=== PATIENT | female | born 1940 | race Caucasian/White ===

== ENCOUNTER 2016-06-13 15:12 | Observation (INO) | payer MEDICARE ==
[2016-06-13] MEDS ORDERED: ASPIRIN 325 MG TAB PO ONE (15:51)
[2016-06-13] MEDS ORDERED: SODIUM CHLORIDE 0.9% 3 ML FLUSH FLUSH PRN (15:51)
--- NOTE | 2016-06-13 16:10 | EDPRACDOC ---
- General Information Information Source: Patient Mode of Arrival: Car - History of Present Illness Onset: one day HPI: PT PRESENTS TO ED WITH LEFT SIDED CHEST PAIN THAT IS ACHY DULL NO RADIATION WORSE WITH MILD EXERTION AND HAS HAD 1-2 EPISODES OF NAUSEA. PT STATES SHE WAS SENT FROM PCP OFFICE DUE TO ABNORMAL EKG CHANGES. PT HAS LONG H/O HEART PROBLEMS AND HAD OPEN HEART SURG APPROX 12 YEARS AGO AND HER LAST HEART CATH WAS APPROX 6YRS AGO. PT STATES HER PAIN GETS SOME BETTER WHEN SHE SITS DOWN TO REST. Chest Pain Location: Reports: Left Chest Pain Radiation: Reports: None Symptoms Occur: Reports: Gradually (GETTING WORSE OVER THE LAST 1-2 WEEKS AND IS MORE CONSTANT SINCE YESTERDAY) Cardiac Risk Factors: Reports: Family History, Hyperlipidemia, Hypertension, Diabetes (BORDERLINE PER PT) Cardiac History of: Reports: NH, Cardiac Cath (LAST CATH APPROX 6 YEARS AGO), Stress Test, CABG, Stent PE Risk Factors: Reports: None Medications within 24 Hours: Reports: Aspirin (LAST NIGHT) Prehospital Care: Reports: None Pain Came On: Reports: Gradually (GETTING WORSE) Pain Status: Present Now Pain Description: Reports: Burning, Aching, Tightness Pain Severity: Mild Pain Worsens With: Reports: Exertion Pain Improves With: Reports: Rest Associated Signs and Symptoms: Reports: Nausea <Gael Mike - Last Filed: 06/13/16 16:14> <Kyler Merritt - Last Filed: 06/13/16 20:42> - General Information Chief Complaint: Generalized Weakness Stated Complaint: ABNORMAL EKG SENT BY DOCTOR'S OFFICE NO CP WEAK Time Seen by Provider: 06/13/16 15:51 Home Medications: Home Medications Amlodipine [Norvasc] 10 mg PO QHS 12/07/13 Clopidogrel Bisulfate [Plavix] 75 mg PO QHS 12/07/13 Fenofibrate Nanocrystallized [Fenofibrate] 145 mg PO QHS 12/07/13 Levothyroxine Sodium [Levo-T] 88 mcg PO DAILY 12/07/13 Loratadine [Allergy Relief] 10 mg PO HS PRN 12/07/13 Metoprolol Succinate (XL) [Toprol Xl] 100 mg PO QHS 12/07/13 Nitroglycerin [Nitrostat] 0.4 mg SL [id number] PRN 12/07/13 Albuterol Sulfate [Ventolin Hfa] 1 - 2 puff INH Q4H PRN 06/13/16 Aspirin/Calcium Carbonate/Mag [Aspirin Buffered 325 mg Tab] 325 mg PO QHS Atorvastatin Calcium 40 mg PO QHS 06/13/16 Clonazepam 1 mg PO QHS PRN 06/13/16 Guaifenesin [Humabid, Mucinex] 600 mg PO BID 06/13/16 Ipratropium/Albuterol Sulfate [Combivent Respimat Inhal [place]] 4 gm INH QID Isosorbide Dinitrate 30 mg PO TID 06/13/16 L.acidoph & Paracasei,B.lactis [Probiotic] 1 cap PO BID 06/13/16 Mometasone/Formoterol [Dulera 200 Mcg/5 Mcg Inhaler] 2 puff INH BID 06/13/16 Multivitamin [One Daily] 1 tab PO QHS 06/13/16 Oxybutynin Chloride 5 mg PO BID 06/13/16 Pantoprazole Sodium [Protonix] 40 mg PO BID 06/13/16 Polyethylene Glycol 3350 [Miralax] 17 gm PO DAILY PRN 06/13/16 Ranitidine [Zantac] 150 mg PO BID 06/13/16 Ranolazine [Ranexa] 500 mg PO BID 06/13/16 Triamterene/Hydrochlorothiazid [Triamterene-Hctz 37.5-25 mg Tb] 1 tab PO DAILY 06/13/16 Allergies/Adverse Reactions: Allergies Allergy/AdvReac Type Severity Reaction Status Date / Time No Known Allergies Allergy Verified 12/07/13 20:08 ED Past Medical History - History Reviewed Yes Nurses notes reviewed and agree except as marked Travel Outside of [place] in the Last 3 Months?: No - Patient Medical History Cardiac History: Reports: Hypertension, Cardiac Catheterization, CABG, Stress Test, Hypercholesterolemia Systemic History: Reports: Cancer (COLON) - Social Medical History Smoking Status: Former smoker ETOH: None Substance Abuse: None Lives With: Other Lives In: Home <Gael Mike - Last Filed: 06/13/16 16:14> EDM Review of Systems - Review of Systems ROS Negative Except as Marked: Yes All systems reviewed and were negative except as marked Constitutional: Fatigue, Weakness. negative: Chills, Fever, Loss of Appetite Eyes: No Symptoms Reported. negative: Redness, Blurred Vision, Double Vision, Discharge, Pain, Light Sensitive, Photophobia Ears: No Symptoms Reported. negative: Pain, Hearing Loss, Drainage, Ear Pulling Throat: No Symptoms Reported. negative: Pain, Swelling Nose: No Symptoms Reported. negative: Congestion, Bleeding, Discharge, Injection, Swelling, Deformity, Ecchymosis, Tender, Abrasion, Laceration Mouth: No Symptoms Reported. negative: Pain, Drooling Respiratory: No Symptoms Reported. negative: Cough, Brassy Cough, Barky Cough, Shortness of Breath, Wheezing, Hemoptysis Cardiovascular: Chest Pain. negative: Cyanosis, Edema, Orthopnea, Palpitations , PND, Syncope, Skin Mottling Gastrointestinal: Nausea. negative: Constipation, Diarrhea, Formula Intolerance , Melena, Pain, Vomiting Genitourinary: No Symptoms Reported. negative: Dysuria, Hematuria, Frequency, Discharge, Bleeding, Testicular Pain, Neurological: No Symptoms Reported. negative: Headache, Dizziness, Seizure, Numbness, Weakness, Speech Difficulty, Gait Difficulty Musculoskeletal: No Symptoms Reported. negative: Neck, Chestwall, Ribs, Back, Shoulder, Arm, Elbow, Forearm, Wrist, Hand, Pelvis, Hip, Femur, Knee, Leg, Ankle , Foot Integumentary: No Symptoms Reported. negative: Itching, Rash, Bruising, Wound Allergic/Immunologic: No Symptoms Reported. negative: Hives, Itching Hematologic: No Symptoms Reported. negative: Lymphadenopathy, Easy Bruising, Easy Bleeding Endocrine: No Symptoms Reported. negative: Weight Gain, Weight Loss Psychiatric: No Symptoms Reported. negative: Anxiety, Depression, Hallucinations, Insomnia, Suicidal <Gael Mike - Last Filed: 06/13/16 16:14> - Physical Exam Constitutional: No apparent distress, Alert (Awake) Oriented to: Time, Person, Place Last recorded Vital Signs: Last Vital Signs Temp 98.3 F 06/13/16 15:25 Pulse 72 06/13/16 15:25 Resp 20 06/13/16 15:25 BP 175/84 06/13/16 15:25 Pulse Ox 97 06/13/16 15:25 Oxygen Pulse Oxygen Saturation 97 O2 Device Room Air Oxygen Flow Rate Fraction of Inspired Oxygen ( FIO2) - HEENT Head: Normal ( normocephalic) Eye Exam: Normal (PERRL, EOMI, Sclera white) Oropharynx: Normal (Pharynx:Moist without exudate,Gums-no swelling) Tympanic Membrane: Normal ENT EAC: Normal TMJ: Normal Nose: No Symptoms Reported (septum midline) Neck: Normal (FROM, trachea at midline) - Respiratory/Cardiovascular Respiratory: Diminished Cardiovascular: Normal (RRR without murmur, gallop or rub) - GI Auscultation: Normal (NABS) Palpation: Normal (Soft,No rebound or guarding, non distended) Tenderness: Non tender Norton's Sign: Negative - Bladder: Normal - Musculoskeletal Back: Normal (Non-Tender) Extremities: Normal (Normal tone, Pulses 2+ No cyanosis or edema, FROM) - Integumentary Skin: Normal, Warm, Dry Lymphatics: Normal (no adenopathy) - Neurologic Memory Impaired: Normal Motor Function: Normal (Normal tone, Pulses 2+ No cyanosis or edema, FROM) Cranial Nerve: Normal (CN II-X11 intact sensation, strength 5/5) Cerebellar: Normal Mood Description: Normal Perception: Normal <Gael Mike - Last Filed: 06/13/16 16:14> - Physical Exam Last recorded Vital Signs: Last Vital Signs Temp 98.1 F 06/13/16 20:32 Pulse 66 06/13/16 20:32 Resp 20 06/13/16 20:32 BP 140/68 06/13/16 20:32 Pulse Ox 92 06/13/16 20:32 Oxygen Pulse Oxygen Saturation 92 O2 Device Room Air Oxygen Flow Rate Fraction of Inspired Oxygen ( FIO2) <Kyler Merritt - Last Filed: 06/13/16 20:42> ED Chest Pain Exam - Respiratory/Cardiovascular Respiratory: Diminished Cardiovascular/Chest: Normal Radial Pulse: Normal Femoral Pulse: Normal Pedal Pulse: Normal Carotid Arteries: Normal Chest Palpation: Normal <Gael Mike - Last Filed: 06/13/16 16:14> - Differential Diagnosis Angina, Esophageal reflux/spasm, Gastritis, Myocardial infarction, Pneumonia - Action Patient received Aspirin within last 24 hours?: Yes ASA given in the ED: Yes Patient received Beta Susy within last 24hrs: Yes - Results All Results Reviewed and Normal except as Highlighted below: No <Gael Mike - Last Filed: 06/13/16 16:14> - Results 06/13/16 16:15 06/13/16 16:15 WBC 8.2 xk/uL (3.8-10.8) 06/13/16 16:15 RBC 5.14 xM/uL (4.20-5.40) 06/13/16 16:15 Hgb 14.8 g/dL (12.0-16.0) 06/13/16 16:15 Hct 44.0 % (36-47) 06/13/16 16:15 MCV 86 fL (81-99) 06/13/16 16:15 MCH 28.9 pg (27-32) 06/13/16 16:15 MCHC 33.7 g/dl (33-36) 06/13/16 16:15 RDW 13.7 % (11.5-14.5) 06/13/16 16:15 Plt Count 268 xk/uL (130-400) 06/13/16 16:15 MPV 8.5 fL (7.4-10.4) 06/13/16 16:15 Neut % (Auto) 52.5 % (45-76) 06/13/16 16:15 Lymph % (Auto) 32.8 % (17-44) 06/13/16 16:15 [place] % (Auto) 9.4 % (3-10) 06/13/16 16:15 Eos % (Auto) 3.1 % (0-5) 06/13/16 16:15 Baso % (Auto) 2.2 % (0-2) H 06/13/16 16:15 Absolute Neuts (auto) 4.26 xk/uL (1.7-8.2) 06/13/16 16:15 Absolute Lymphs (auto) 2.62 xk/uL (0.65-4.75) 06/13/16 16:15 PT 10.2 SEC (9.2-11.2) 06/13/16 16:15 INR 1.0 06/13/16 16:15 APTT 21.9 SEC (22-35) L 06/13/16 16:15 Sodium 138 mEq/L (137-146) 06/13/16 16:15 Potassium 4.1 mEq/L (3.5-5.1) 06/13/16 16:15 Chloride 101 mEq/L (98-107) 06/13/16 16:15 Carbon Dioxide 27 mMOL/L (22-33) 06/13/16 16:15 Anion Gap 14 mEq/L (8-16) 06/13/16 16:15 BUN 30 MG/DL (7-17) H 06/13/16 16:15 Creatinine 1.00 MG/DL (0.52-1.04) 06/13/16 16:15 Estimated GFR (MDRD) 54 mL/min (>=60) L 06/13/16 16:15 Glucose 95 MG/DL (70-99) 06/13/16 16:15 Calculated Osmolality 272 MOs/Kg (270-290) 06/13/16 16:15 Calcium 9.3 MG/DL (8.4-10.2) 06/13/16 16:15 Total Bilirubin 0.6 MG/DL (0.2-1.3) 06/13/16 16:15 AST 31 IU/L (14-36) 06/13/16 16:15 ALT 38 IU/L (9-52) 06/13/16 16:15 Alkaline Phosphatase 59 IU/L (55-165) 06/13/16 16:15 Troponin I < 0.01 ng/mL (<.04) 06/13/16 18:50 Yoy-X-Kuztiierjen Pept 218 pg/mL (0-900) 06/13/16 16:15 Total Protein 7.7 G/DL (6.3-8.2) 06/13/16 16:15 Albumin 4.4 G/DL (3.5-5.0) 06/13/16 16:15 Urine Color Yellow 06/13/16 17:15 Urine Clarity Clear 06/13/16 17:15 Urine pH 6.0 (5.0-8.0) 06/13/16 17:15 Ur Specific [place] 1.010 (1.003-1.035) 06/13/16 17:15 Urine Protein Neg (NEG/TRACE) 06/13/16 17:15 Urine Glucose (UA) Neg (NEGATIVE) 06/13/16 17:15 Urine Ketones Neg (NEGATIVE) 06/13/16 17:15 Urine Occult Blood Neg (NEG/TRACE) 06/13/16 17:15 Urine Nitrite Neg (NEGATIVE) 06/13/16 17:15 Urine Bilirubin Neg (NEGATIVE) 06/13/16 17:15 Urine Urobilinogen 0.2 MG/DL (0-1) 06/13/16 17:15 Ur Leukocyte Esterase Neg (NEGATIVE) 06/13/16 17:15 Urine RBC 0-2 (0-5) 06/13/16 17:15 Urine WBC 0-2 (0-5) 06/13/16 17:15 Ur Epithelial Cells Occ 06/13/16 17:15 Urine Bacteria Few (NEG/FEW) 06/13/16 17:15 Lab Results 06/13/16 06/13/16 06/13/16 17:15 16:15 16:15 WBC 8.2 RBC 5.14 Hgb 14.8 Hct 44.0 MCV 86 MCH 28.9 MCHC 33.7 RDW 13.7 Plt Count 268 MPV 8.5 Neut % (Auto) 52.5 Lymph % (Auto) 32.8 [place] % (Auto) 9.4 Eos % (Auto) 3.1 Baso % (Auto) 2.2 H Absolute Neuts (auto) 4.26 Absolute Lymphs (auto) 2.62 PT 10.2 INR 1.0 APTT 21.9 L Sodium Potassium Chloride Carbon Dioxide Anion Gap BUN Creatinine Estimated GFR (MDRD) Glucose Calculated Osmolality Calcium Total Bilirubin AST ALT Alkaline Phosphatase Troponin I Kum-[id number]-Iymplpagpzm Pept Total Protein Albumin Urine Color Yellow Urine Clarity Clear Urine pH 6.0 Ur Specific [place] 1.010 Urine Protein Neg Urine Glucose (UA) Neg Urine Ketones Neg Urine Occult Blood Neg Urine Nitrite Neg Urine Bilirubin Neg Urine Urobilinogen 0.2 Ur Leukocyte Esterase Neg Urine RBC 0-2 Urine WBC 0-2 Ur Epithelial Cells Occ Urine Bacteria Few 06/13/16 16:15 WBC RBC Hgb Hct MCV MCH MCHC RDW Plt Count MPV Neut % (Auto) Lymph % (Auto) [place] % (Auto) Eos % (Auto) Baso % (Auto) Absolute Neuts (auto) Absolute Lymphs (auto) PT INR APTT Sodium 138 Potassium 4.1 Chloride 101 Carbon Dioxide 27 Anion Gap 14 BUN 30 H Creatinine 1.00 Estimated GFR (MDRD) 54 L Glucose 95 Calculated Osmolality 272 Calcium 9.3 Total Bilirubin 0.6 AST 31 ALT 38 Alkaline Phosphatase 59 Troponin I < 0.01 Gix-D-Jouefveckgw Pept 218 Total Protein 7.7 Albumin 4.4 Urine Color Urine Clarity Urine pH Ur Specific [place] Urine Protein Urine Glucose (UA) Urine Ketones Urine Occult Blood Urine Nitrite Urine Bilirubin Urine Urobilinogen Ur Leukocyte Esterase Urine RBC Urine WBC Ur Epithelial Cells Urine Bacteria Laboratory Results - last 24 hr 06/13/16 06/13/16 06/13/16 16:15 16:15 16:15 WBC 8.2 RBC 5.14 Hgb 14.8 Hct 44.0 MCV 86 MCH 28.9 MCHC 33.7 RDW 13.7 Plt Count 268 MPV 8.5 Neut % (Auto) 52.5 Lymph % (Auto) 32.8 [place] % (Auto) 9.4 Eos % (Auto) 3.1 Baso % (Auto) 2.2 H Absolute Neuts (auto) 4.26 Absolute Lymphs (auto) 2.62 PT 10.2 INR 1.0 APTT 21.9 L Sodium 138 Potassium 4.1 Chloride 101 Carbon Dioxide 27 Anion Gap 14 BUN 30 H Creatinine 1.00 Estimated GFR (MDRD) 54 L Glucose 95 Calculated Osmolality 272 Calcium 9.3 Total Bilirubin 0.6 AST 31 ALT 38 Alkaline Phosphatase 59 Troponin I < 0.01 [id number]-Pjoavizsknm Pept 218 Total Protein 7.7 Albumin 4.4 Urine Color Urine Clarity Urine pH Ur Specific [place] Urine Protein Urine Glucose (UA) Urine Ketones Urine Occult Blood Urine Nitrite Urine Bilirubin Urine Urobilinogen Ur Leukocyte Esterase Urine RBC Urine WBC Ur Epithelial Cells Urine Bacteria 06/13/16 17:15 WBC RBC Hgb Hct MCV MCH MCHC RDW Plt Count MPV Neut % (Auto) Lymph % (Auto) [place] % (Auto) Eos % (Auto) Baso % (Auto) Absolute Neuts (auto) Absolute Lymphs (auto) PT INR APTT Sodium Potassium Chloride Carbon Dioxide Anion Gap BUN Creatinine Estimated GFR (MDRD) Glucose Calculated Osmolality Calcium Total Bilirubin AST ALT Alkaline Phosphatase Troponin I [id number]-Zaxtqsirdhc Pept Total Protein Albumin Urine Color Yellow Urine Clarity Clear Urine pH 6.0 Ur Specific [place] 1.010 Urine Protein Neg Urine Glucose (UA) Neg Urine Ketones Neg Urine Occult Blood Neg Urine Nitrite Neg Urine Bilirubin Neg Urine Urobilinogen 0.2 Ur Leukocyte Esterase Neg Urine RBC 0-2 Urine WBC 0-2 Ur Epithelial Cells Occ Urine Bacteria Few Laboratory Results 06/13/16 16:15 06/13/16 16:15 <Kyler Merritt - Last Filed: 06/13/16 20:42> <Gael Mike Last Filed: 06/13/16 16:14> - Departure Yes I personally saw and evaluated the patient. Disposition: Admit IP To This Hospital Decision to Admit Time: 18:20 Decision to admit date: 06/13/16 Decision to admit: from ED <Kyler Merritt - Last Filed: 06/13/16 20:42> - Departure Condition: Stable Final Diagnosis: Chest pain
[2016-06-13] MEDS ORDERED: MORPHINE 4 MG/ML INJECTION IV ONE (16:14)
[2016-06-13] MEDS ORDERED: NS 1,000 ML IV ONE (16:14)
[2016-06-13] MEDS ORDERED: ONDANSETRON HCL 4 MG/2 ML VIAL IV ONE (16:14)
--- NOTE | 2016-06-13 16:20 | DIRPT ---
CLINICAL DATA: Chest pain and weakness EXAM: PORTABLE CHEST 1 VIEW COMPARISON: 08/31/2015 FINDINGS: Status post median sternotomy. Stable mild cardiac enlargement. Vascular pattern normal. Lungs clear. No pleural effusions. IMPRESSION: No active disease. Electronically Signed By: Richard Stanley M.D. On: 06/13/2016 16:17
[2016-06-13 16:22] LABS: AUTOMATED BASOPHIL 2.2 % (0-2); AUTOMATED EOSINOPHIL 3.1 % (0-5); AUTOMATED LYMPH 32.8 % (17-44); AUTOMATED MONOCYTE 9.4 % (3-10); AUTOMATED NEUTROPHIL 52.5 % (45-76); MPV 8.5 fL (7.4-10.4)
[2016-06-13 16:33] LABS: BLOOD UREA NITROGEN 30 MG/DL (7-17); CALCIUM 9.3 MG/DL (8.4-10.2); CALCULATED OSMOLALITY 272 MOs/Kg (270-290); CHLORIDE 101 mEq/L (98-107); GLUCOSE 95 MG/DL (70-99); SODIUM LEVEL 138 mEq/L (137-146); TOTAL PROTEIN 7.7 G/DL (6.3-8.2)
[2016-06-13 16:34] LABS: PARTIAL THROMB. TIME 21.9 SEC (22-35)
[2016-06-13] MEDS: NITROGLYCERINE 0.4 MG TAB SL PRN ×2 (16:47→17:03)
[2016-06-13 17:45] LABS: RBC/URINE 0-2 (0-5); WBC/URINE 0-2 (0-5)
[2016-06-13 17:48] LABS: LEUKOCYTES/URINE NEG (NEGATIVE); NITRITE/URINE NEG (NEGATIVE); URINE OCCULT BLOOD NEG (NEG/TRACE)
[2016-06-13] MEDS ORDERED: SODIUM CHLORIDE 0.9% 3 ML FLUSH FLUSH SCH (18:00)
--- NOTE | 2016-06-13 18:44 | HISTPHYS ---
- Chief Complaint chest pain - History of Present Illness PRIMARY CARE PROVIDER: Dr. Cox HPI: The patient is a 75 yo woman with coronary artery disease and history of CABG who presents with worsening chest pain. The patient describes 2 kinds of pain, one in the left chest and the other in the epigastric region that radiates to her substernal area. She has had chronic intermittent chest pain for years, but over the last 3 weeks she has had more chest pain than usual. The chest pain has become more frequent, and she has had to use more nitroglycerin more frequently to resolve the chest pain. Yesterday and today her chest pain was considerably worse than normal. She went to her primary care doctor's office today and was told that her EKG was abnormal and that she should come to the emergency room. Yesterday and into today, she had chest pain most of the day, which is unusual, and it was not resolving. She took 6 nitroglycerin tabs today , and although they helped, she still had pain. The upper epigastric pain, which she calls her indigestion, is a tightness and pressure that moves up into her substernal area and has been 10/10 pain at times. The left chest pain is 7-8 /10 and is a pressure/heaviness pain. Onset: Worsening chest pain over 3 weeks but much worse yesterday and today. Duration: intermittent. Location and radiation: Upper epigastric pain radiating to the substernal area. Left chest. Character: he upper epigastric pain, which she calls her indigestion, is a tightness and pressure that moves up into her substernal area and has been 10/ 10 pain at times. The left chest pain is 7-8/10 and is a pressure/heaviness pain. Alleviated by: Nothing. Exacerbated by: exertion. Associated Symptoms: Palpitations. No shortness of breath. Has minimal dry cough. No wheezing. No shortness of breath or diaphoresis. Nausea. Vomited x 1. Has had increased hiccups over the last 2 days. Chronic constipation. Sometimes feels sour taste in mouth when she is lying down. Had dizziness. No headache or focal weakness. Treatments: none at home except usual medications. - Medical History Cardiac History: Reports: Hypertension, Congestive Heart Failure (Diastolic. ECHO 2007: EF 65%. Diastolic dysfunction.), Cardiac Catheterization, CABG, Stress Test (10/01/07: anterior ischemia, EF 65%.), Hypercholesterolemia GI/ History: Reports: PMH GI Yes/No Other (Chron's disease) Systemic History: Reports: Cancer (COLON), Hypothyroidism Neurological History: Denies: Cerebrovascular Accident (but had a TIA) OTHER HISTORY: ECHOCARDIOGRAM 07/01/2005: EF 60%. Normal left ventricular function. Diastolic dysfunction with impaired relaxation is seen. Aortic valve sclerosis, mild aortic regurgitation. Mild left atrial enlargement. Trace to mild tricuspid regurgitation. Mild mitral regurgitation. Per reports: Carotid endarterectomy 2008. - Surgical History Reports: CABG (08/26/03: HSAH to LAD; SVG to marginal, SVG to OM2, non-revasc diag branch.), Cardiac Catheterization (and CABG 08/26/03), Hernia Surgery (Dr. Shen, 2009. Also colon resection for colon mass 12/07/2006.), Other (Per report : Carotid endarterectomy 2008.) - Medictions/Allergies Allergies No Known Allergies Allergy (Verified 12/07/13 20:08) Current Medication List: Reviewed Home Medications Amlodipine [Norvasc] 10 mg PO QHS 12/07/13 Clopidogrel Bisulfate [Plavix] 75 mg PO QHS 12/07/13 Fenofibrate Nanocrystallized [Fenofibrate] 145 mg PO QHS 12/07/13 Levothyroxine Sodium [Levo-T] 88 mcg PO DAILY 12/07/13 Loratadine [Allergy Relief] 10 mg PO HS PRN 12/07/13 Metoprolol Succinate (XL) [Toprol Xl] 100 mg PO QHS 12/07/13 Nitroglycerin [Nitrostat] 0.4 mg SL Q5MX3 PRN 12/07/13 Albuterol Sulfate [Ventolin Hfa] 1 - 2 puff INH Q4H PRN 06/13/16 Aspirin/Calcium Carbonate/Mag [Aspirin Buffered 325 mg Tab] 325 mg PO QHS Atorvastatin Calcium 40 mg PO QHS 06/13/16 Clonazepam 1 mg PO QHS PRN 06/13/16 Guaifenesin [Humabid, Mucinex] 600 mg PO BID 06/13/16 Ipratropium/Albuterol Sulfate [Combivent Respimat Inhal [place]] 4 gm INH QID Isosorbide Dinitrate 30 mg PO TID 06/13/16 L.acidoph & Paracasei,B.lactis [Probiotic] 1 cap PO BID 06/13/16 Mometasone/Formoterol [Dulera 200 Mcg/5 Mcg Inhaler] 2 puff INH BID 06/13/16 Multivitamin [One Daily] 1 tab PO QHS 06/13/16 Oxybutynin Chloride 5 mg PO BID 06/13/16 Pantoprazole Sodium [Protonix] 40 mg PO BID 06/13/16 Polyethylene Glycol 3350 [Miralax] 17 gm PO DAILY PRN 06/13/16 Ranitidine [Zantac] 150 mg PO BID 06/13/16 Ranolazine [Ranexa] 500 mg PO BID 06/13/16 Triamterene/Hydrochlorothiazid [Triamterene-Hctz 37.5-25 mg Tb] 1 tab PO DAILY 06/13/16 - Family History Reports: Cardiac Disorders (Grandmother: [place].) - Social History Smoking Status: Never smoker Social History: Denies: Alcohol Use, Substance Use Disorder - Review of Systems GENERAL: No Fever, chills, or diaphoresis. Positive for fatigue/malaise. HEENT: No ear pain or discharge. No nasal discharge or bleeding. No throat pain or swelling. No eye pain or eye redness. RESPIRATORY: No cough, wheezing, or shortness of breath. CARDIOVASCULAR: No chest pain or palpitations. GI: Nausea. Vomited x 1. Has had increased hiccups over the last 2 days. Epigastric/substernal pain. Chronic constipation. No diarrhea or bloody stool. NEUROLOGICAL: Had dizziness. No headache or focal weakness. INTEGUMENT: no rashes, itching, or lesions. LYMPHATIC SYSTEM: no lymph node swelling or pain. MUSCULOSKELETAL: no new pain or joint swelling. GENITOURINARY: No dysuria or hematuria. ENDOCRINE: No polyuria or polydipsia. HEME: No chronic anemia, bleeding, or easy bruising. - Physical Exam Vital Signs: Initial Vitals Temperature 98.3 F 06/13/16 15:25 Pulse Rate 72 06/13/16 15:25 Respiratory Rate 20 06/13/16 15:25 Blood Pressure 175/84 06/13/16 15:25 Pulse Oxygen Saturation 97 06/13/16 15:25 Vital Signs - 24 hr 06/13/16 06/13/16 06/13/16 15:25 15:48 16:03 Temperature 98.3 F Pulse Rate 72 70 68 Respiratory 20 20 18 Rate Blood Pressure 175/84 165/72 169/75 Pulse Oxygen 97 98 93 Saturation 06/13/16 06/13/16 06/13/16 16:37 17:02 17:14 Temperature Pulse Rate 69 61 69 Respiratory 20 16 18 Rate Blood Pressure 167/74 156/71 125/55 L Pulse Oxygen 92 95 96 Saturation 06/13/16 17:37 Temperature Pulse Rate 66 Respiratory 18 Rate Blood Pressure 140/67 Pulse Oxygen 92 Saturation Weight: 79.9 kg Height: 5 feet 2 inches BMI: 32.2 - Other Exam Other Exam Findings: GENERAL: Ill-appearing, well nourished, in acute distress. HEENT: Normocephalic, atraumatic; pupils equal and round. Nares patent, without discharge or bleeding. No oropharyngeal lesions or erythema. Mucous membranes are dry. NECK: is supple, no masses, trachea midline. RESPIRATORY: Clear to auscultation bilaterally. Chest wall movements are symmetric. No use of accessory muscles to breathe. Intermittent tachypnea. No wheezing, rales, rhonchi. CARDIOVASCULAR: Normal S1, S2. Murmur 2/6 systolic. No rubs, or gallops. PMI non -displaced. Carotids: no carotid bruits. No bradycardia or tachycardia. DP pulses 2+ bilaterally. GI: soft, non-distended, normal active bowel sounds. No hepatosplenomegaly. Mild epigastric tenderness. INTEGUMENT: Clean, dry, and intact. No rashes. No lesions. MUSCULOSKELETAL: Moving all extremities. No cyanosis. No clubbing. Edema: none bilaterally. NEUROLOGICAL: Cranial nerves 2-12 grossly intact. Motor 4/5 throughout. Reflexes : 2+ bilaterally. Babinski: toes downgoing bilaterally. Intact Finger to nose. Sensory grossly intact to light touch. Intact rapid alternating movements bilaterally. No pronator drift. PSYCHIATRIC: Fully oriented. Normal and appropriate affect. LYMPHATIC: No cervical lymphadenopathy. No supraclavicular lymphadenopathy. - Lab Results Laboratory Results - last 24 hr 06/13/16 06/13/16 06/13/16 16:15 16:15 16:15 WBC 8.2 RBC 5.14 Hgb 14.8 Hct 44.0 MCV 86 MCH 28.9 MCHC 33.7 RDW 13.7 Plt Count 268 MPV 8.5 Neut % (Auto) 52.5 Lymph % (Auto) 32.8 Smith % (Auto) 9.4 Eos % (Auto) 3.1 Baso % (Auto) 2.2 H Absolute Neuts (auto) 4.26 Absolute Lymphs (auto) 2.62 PT 10.2 INR 1.0 APTT 21.9 L Sodium 138 Potassium 4.1 Chloride 101 Carbon Dioxide 27 Anion Gap 14 BUN 30 H Creatinine 1.00 Estimated GFR (MDRD) 54 L Glucose 95 Calculated Osmolality 272 Calcium 9.3 Total Bilirubin 0.6 AST 31 ALT 38 Alkaline Phosphatase 59 Troponin I < 0.01 Kpi-E-Spqvnwitmwy Pept 218 Total Protein 7.7 Albumin 4.4 Urine Color Urine Clarity Urine pH Ur Specific [place] Urine Protein Urine Glucose (UA) Urine Ketones Urine Occult Blood Urine Nitrite Urine Bilirubin Urine Urobilinogen Ur Leukocyte Esterase Urine RBC Urine WBC Ur Epithelial Cells Urine Bacteria 06/13/16 17:15 WBC RBC Hgb Hct MCV MCH MCHC RDW Plt Count MPV Neut % (Auto) Lymph % (Auto) Smith % (Auto) Eos % (Auto) Baso % (Auto) Absolute Neuts (auto) Absolute Lymphs (auto) PT INR APTT Sodium Potassium Chloride Carbon Dioxide Anion Gap BUN Creatinine Estimated GFR (MDRD) Glucose Calculated Osmolality Calcium Total Bilirubin AST ALT Alkaline Phosphatase Troponin I Cvw-P-Lxhwxapqylz Pept Total Protein Albumin Urine Color Yellow Urine Clarity Clear Urine pH 6.0 Ur Specific [place] 1.010 Urine Protein Neg Urine Glucose (UA) Neg Urine Ketones Neg Urine Occult Blood Neg Urine Nitrite Neg Urine Bilirubin Neg Urine Urobilinogen 0.2 Ur Leukocyte Esterase Neg Urine RBC 0-2 Urine WBC 0-2 Ur Epithelial Cells Occ Urine Bacteria Few Records reviewed from Dr. Cox's office, 03/22/2016: Lipid panel: Total cholesterol 177 Triglycerides 337 HDL 31 VLDL 67 LDL 79 LDL/HDL ratio 2.5 Chemistry: Glucose 118 Creatinine 1.27 - Diagnostic Findings DIAGNOSTIC DATA: EKG at Dr. Cox's office: 72 bpm. Normal sinus rhythm. T wave inversion in leads 1, V2, V3, V4, V5, and V6. Slight ST depression in leads 1, V3, V4, and V5. Reviewed EKG personally. EKG at [facility]: 69 bpm. Normal sinus rhythm. ST and T-wave abnormality, consider lateral ischemia. T-wave inversion in lead 1 and V3. Flat T-wave in leads V2, V4, V5, and V6. Reviewed EKG personally. IMAGING: Chest x-ray, viewed personally: EXAM: PORTABLE CHEST 1 VIEW COMPARISON: 08/31/2015 FINDINGS: Status post median sternotomy. Stable mild cardiac enlargement. Vascular pattern normal. Lungs clear. No pleural effusions. IMPRESSION: No active disease. PREVIOUS IMAGING: GALLBLADDER ULTRASOUND 11/10/15: EXAM: US ABDOMEN LIMITED - RIGHT UPPER QUADRANT COMPARISON: None. FINDINGS: Gallbladder: No gallstones or wall thickening visualized. No sonographic Norton sign noted. Common bile duct: Diameter: 2.5 mm. Liver: No focal lesion identified. Diffusely increased echogenicity, suggestive of hepatic steatosis. IMPRESSION: 1. No evidence of cholelithiasis or findings to suggest acute cholecystitis at this time. 2. Diffusely increased hepatic echogenicity, suggestive of hepatic steatosis. - Assessment (1) Acute coronary syndrome I24.9 - ACUTE ISCHEMIC HEART DISEASE, UNSPECIFIED Acute Present on Admission: Yes Known CAD with history of CABG. Plan: Obtain cardiac enzymes x 3. Place patient on telemetry. Give patient oxygen, aspirin. Give nitroglycerin, and morphine as needed for chest pain. Give statin. Stress test has been ordered for the morning. Patient has been advised, if the stress test is negative, to follow up with the primary care provider for evaluation of other potential causes of the chest pain. Give beta pablo. Give MARVIN inhibitor. Lovenox 1 mg/kg q 12 hours. Discuss[address] case with Dr. David; cardiology team will consult on patient. (2) Epigastric pain R10.13 - EPIGASTRIC PAIN Acute Present on Admission: Yes Concerning that it radiates to substernal area and is a tightness sensation. Plan: Continue cardiac workup. If cardiac workup negative then consider outpatient GI workup. (3) Palpitations R00.2 - PALPITATIONS Acute Present on Admission: Yes Telemetry (4) Essential (primary) hypertension I10 - ESSENTIAL (PRIMARY) HYPERTENSION Acute Present on Admission: Yes Continue home meds. - Plan Appreciate records sent from Dr. Cox's office. Appreciate consultation by Dr. David. Case Care Discussed with: Patient, Consultants (Dr. David, joy operator helper), Family, Nursing Staff Total Time: 60 min
[2016-06-13] MEDS ORDERED: NITROGLYCERINE 0.4 MG TAB SL PRN ×2 (19:44→20:51)
[2016-06-13] MEDS ORDERED: MORPHINE 2 MG/ML INJECTION IV PRN (19:44)
[2016-06-13] MEDS ORDERED: CLONAZEPAM 1 MG PO PRN (19:45)
[2016-06-13] MEDS ORDERED: Loratadine 10 MG TAB PO PRN (19:45)
[2016-06-13] MEDS ORDERED: Albuterol/Ipratropium Neb 3 ML NEB NEB PRN (19:50)
[2016-06-13] MEDS ORDERED: ALBUTEROL 0.083% 3 ML NEB NEB PRN (19:51)
[2016-06-13] MEDS ORDERED: GUAIFEN 100 MG-DEXTROMETH 10 MG PER 5 ML PO PRN (21:00)
[2016-06-13] MEDS ORDERED: ACETAMINOPHEN 325 MG SUPP PR PRN (21:00)
[2016-06-13] MEDS ORDERED: FORMOTEROL INH SCH (21:00)
[2016-06-13] MEDS ORDERED: ISOSORBIDE DINITRATE 30 MG PO SCH (21:00)
[2016-06-13] MEDS ORDERED: ACIDOPH PO SCH (21:00)
[2016-06-13] MEDS ORDERED: BENZONATATE 100 MG PERLES PO PRN (21:00)
[2016-06-13] MEDS ORDERED: MOMETASONE INH SCH (21:00)
[2016-06-13] MEDS ORDERED: PARACASEI B LACTIS PO SCH (21:00)
[2016-06-13] MEDS ORDERED: BISACODYL 5 MG TAB PO PRN (21:00)
[2016-06-13] MEDS ORDERED: SIMETHICONE 80 MG TAB PO PRN (21:00)
[2016-06-13] MEDS ORDERED: Non-Formulary Medication ITEM (Multivitamin [One Daily] 1 TAB) PO SCH (21:00)
[2016-06-13] MEDS ORDERED: Enoxaparin 1 mg per kg per dose SQ SCH (21:00)
[2016-06-13] MEDS ORDERED: Aluminum;Magnesium;Simethicone 30 ML UDC PO PRN (21:00)
[2016-06-13] MEDS ORDERED: TEMAZEPAM 15 MG CAP PO PRN (21:00)
[2016-06-13] MEDS ORDERED: [UNRECOGNIZED DRUG - OTHER] INH SCH (21:00)
[2016-06-13] MEDS ORDERED: Pharmacy Order Set Alert SCH (21:00)
[2016-06-13] MEDS ORDERED: PROMETHAZINE 25 MG/ML VIAL IV PRN (21:00)
[2016-06-13] MEDS ORDERED: ACETAMINOPHEN 325 MG/TAB TABLET PO PRN (21:00)
[2016-06-13] MEDS ORDERED: ONDANSETRON HCL 4 MG/2 ML VIAL IV PRN (21:00)
[2016-06-13] MEDS ORDERED: SENNA CONCENTRATE TAB PO PRN (21:00)
[2016-06-13] MEDS ORDERED: Docusate Sodium 100 MG CAP PO PRN (21:00)
[2016-06-13] MEDS: ALBUTEROL 0.083% 3 ML NEB NEB SCH (21:20)
[2016-06-13] MEDS: BUDESONIDE 0.5 MG NEB NEB SCH (21:22)
[2016-06-13] MEDS: OXYBUTYNIN 5 MG TAB PO SCH (21:41)
[2016-06-13] MEDS: FENOFIBRATE 145 MG TAB PO SCH (21:41)
[2016-06-13] MEDS: ISOSORBIDE DINITRATE 10 MG TAB PO SCH (21:41)
[2016-06-13] MEDS: GUAIFENESIN 600 MG LA TAB PO SCH (21:41)
[2016-06-13] MEDS: CLOPIDOGREL 75 MG TAB PO SCH (21:42)
[2016-06-13] MEDS: METOPROLOL (TOPROL-XL) 100 MG TAB PO SCH (21:42)
[2016-06-13] MEDS: ATORVASTATIN 40 MG TAB PO SCH (21:42)
[2016-06-13] MEDS: RANITIDINE 150 MG TAB PO SCH (21:42)
[2016-06-13] MEDS: VITAMINS, MULTIPLE CAP PO SCH (21:42)
[2016-06-13] MEDS: RANOLAZINE 500 MG EXT RELEASE TAB PO SCH (21:42)
[2016-06-13] MEDS: ENOXAPARIN 80 MG/0.8 ML PFS SQ SCH (21:43)
[2016-06-13] MEDS ORDERED: Vaccine Screening Complete SCH (23:00)
[2016-06-14] MEDS: Albuterol/Ipratropium Neb 3 ML NEB NEB SCH ×4 (01:59→20:31)
[2016-06-14] MEDS: ALBUTEROL 0.083% 3 ML NEB NEB SCH ×2 (02:34→10:25)
[2016-06-14 07:15] LABS: CPK TOTAL WITH POSSIBLE MB 42 IU/L (30-134)
[2016-06-14] MEDS ORDERED: FLU VACCINE (Afluria) 0.5 ML DOSE IM ONE (08:00)
[2016-06-14] MEDS ORDERED: REGADENOSON 0.4 MG/5 ML SYRINGE IV ONE (09:00)
[2016-06-14] MEDS ORDERED: SODIUM CHLORIDE 0.9% 10 ML FLUSH FLUSH ONE (09:00)
[2016-06-14] MEDS: BUDESONIDE 0.5 MG NEB NEB SCH ×2 (10:25→20:32)
--- NOTE | 2016-06-14 11:36 | PCM.CARDCO ---
Consultation Date: 06/14/16 Requesting Physician: Chrsitian Carpenter Property Utilization Manager: King David Consult Reason: Chest Pain - History of Present Illness She is a 75-year-old woman known to our practice with a history of CAD more than a decade ago, coronary arteriography 2011 showed patent vein graft to the 1st and 2nd marginal and a patent left thoracic artery to the anterior descending. She has severe stenosis in the marginal branch and a small nondominant right coronary artery is judged to be best treated medically. Since that time she has had intermittent angina in 2015 was admitted to [facility] for chest pain. She presents to [facility] time either for 24 hours she had waxing and waning of chest pain typical angina unrelated to physical activity but intermittently relieved with rest and nitroglycerin. She said at home with his more than 24 hours EKG shows diffuse T -wave inversions and was referred to the emergency room by Dr. Cox. She has had no chest pain since. Serial troponins are normal. She underwent a myocardial perfusion study this morning results are pending. Chief Complaint: chest pain - Past Medical and Surgical History Cardiac History: Reports: Hypertension, Congestive Heart Failure (Diastolic. ECHO 2007: EF 65%. Diastolic dysfunction.), Cardiac Catheterization (and CABG 25/09), CABG (08/26/03: SHAH to LAD; SVG to marginal, SVG to OM2, non-revasc diag branch.), Stress Test (10/01/07: anterior ischemia, EF 65%.), Hypercholesterolemia, Other (Carotid stenosis) GI/ History: Reports: PMH GI Yes/No Other (Chron's disease) Systemic History: Reports: Cancer (COLON), Hypothyroidism Psychological History: Denies: Alcoholism, Substance Use Disorder Neurological History: Denies: Cerebrovascular Accident (but had a TIA) Past Surgical History: Reports: CABG (08/26/03: SHAH to LAD; SVG to marginal, SVG to OM2, non-revasc diag branch.), Cardiac Catheterization (and CABG 08/26/03) , Hernia Surgery (Dr. Shen, 2008. Also colon resection for colon mass 2006.), Other (Per report: Carotid endarterectomy 2008.) Allergies No Known Allergies Allergy (Verified 12/07/13 20:08) Home Medications Amlodipine [Norvasc] 10 mg PO QHS 12/07/13 Clopidogrel Bisulfate [Plavix] 75 mg PO QHS 12/07/13 Fenofibrate Nanocrystallized [Fenofibrate] 145 mg PO QHS 12/07/13 Levothyroxine Sodium [Levo-T] 88 mcg PO DAILY 12/07/13 Loratadine [Allergy Relief] 10 mg PO HS PRN 12/07/13 Metoprolol Succinate (XL) [Toprol Xl] 100 mg PO QHS 12/07/13 Nitroglycerin [Nitrostat] 0.4 mg SL Q5MX3 PRN 12/07/13 Albuterol Sulfate [Ventolin Hfa] 1 - 2 puff INH Q4H PRN 06/13/16 Aspirin/Calcium Carbonate/Mag [Aspirin Buffered 325 mg Tab] 325 mg PO QHS Atorvastatin Calcium 40 mg PO QHS 06/13/16 Clonazepam 1 mg PO QHS PRN 06/13/16 Guaifenesin [Mucinex] 600 mg PO BID 06/13/16 Ipratropium/Albuterol Sulfate [Combivent Respimat Inhal [place]] 4 gm INH QID Isosorbide Dinitrate 30 mg PO TID 06/13/16 L.acidoph & Paracasei,B.lactis [Probiotic] 1 cap PO BID 06/13/16 Mometasone/Formoterol [Dulera 200 Mcg/5 Mcg Inhaler] 2 puff INH BID 06/13/16 Multivitamin [One Daily] 1 tab PO QHS 06/13/16 Oxybutynin Chloride 5 mg PO BID 06/13/16 Pantoprazole Sodium [Protonix] 40 mg PO BID 06/13/16 Polyethylene Glycol 3350 [Miralax] 17 gm PO DAILY PRN 06/13/16 Ranitidine [Zantac] 150 mg PO BID 06/13/16 Ranolazine [Ranexa] 500 mg PO BID 06/13/16 Triamterene/Hydrochlorothiazid [Triamterene-Hctz 37.5-25 mg Tb] 1 tab PO DAILY 06/13/16 - Social History Lives: Other (Independently) Smoking Status: Never smoker Social History: Denies: Alcohol Use, Substance Use Disorder - Family History Reports: Cardiac Disorders (Grandmother: [place].) - Review of Systems Yes All systems reviewed and were negative except as marked Constitutional: Fatigue, Weakness. negative: Chills, Fever, Loss of Appetite - Respiratory No Symptoms Reported - Cardiovascular Chest Pain - Physical Exam Constitutional: No apparent distress, Alert (Awake), Other (She does not appear acutely or chronically ill) Oriented to: Time, Person, Place Exam: Last Vital Signs Temp 97.6 F 06/14/16 08:17 Pulse 67 06/14/16 10:00 Resp 18 06/14/16 08:17 BP 125/70 06/14/16 08:17 Pulse Ox 93 06/14/16 08:17 Intake & Output 06/13/16 06/14/16 06/14/16 23:59 07:59 15:59 Intake Total 0 Output Total 1300 300 Balance 0 -1300 -300 Patient's weight 174 lb 8 oz 170 lb 2 oz - HEENT Head: Normal (No bruit thyromegaly or neck vein distention) Eye: Normal (PERRL, EOMI, Sclera white) Oropharynx: Normal (Pharynx:Moist without exudate,Gums-no swelling) Tympanic Membrane: Normal ENT EAC: Normal TMJ: Normal Nose: No Symptoms Reported (septum midline) - Respiratory/Cardiovascular Respiratory: Normal - CTA Cardiovascular: Normal. negative: Systolic murmur, Gallop/S3 - GI Auscultation: Normal (Obese soft nondistended active bowel sounds) Palpation: Normal (Soft,No rebound or guarding, non distended) Tenderness: Non tender - Musculoskeletal Back: Normal (Non-Tender) Extremities: Normal (Normal tone, Pulses 2+ No cyanosis or edema, FROM), Femoral Pulse, Pedal Pulse, Radial Pulse. negative: Calf Tenderness, Clubbing, Cyanosis, Edema, Pedal Edema - Integumentary Skin: Normal, Warm, Dry. negative: Clammy, Diaphoretic, Pale, Mottling, Jaundice Lymphatics: Normal (no adenopathy) - Neurologic Memory Impaired: Normal Cerebellar: Normal Mood Description: Normal Perception: Normal - Lab Results Laboratory Tests 06/13/16 06/13/16 06/13/16 16:15 16:15 16:15 Hgb 14.8 Hct 44.0 Plt Count 268 INR 1.0 Potassium 4.1 Creatinine 1.00 Troponin I < 0.01 Mwr-A-Vhyyqayxics Pept 218 LDL Cholesterol, Calc 06/13/16 06/13/16 06/14/16 18:50 22:00 06:40 Hgb Hct Plt Count INR Potassium Creatinine Troponin I < 0.01 < 0.01 Qyk-D-Yobowqbjshr Pept LDL Cholesterol, Calc 61.0 06/14/16 06:40 Hgb Hct Plt Count INR Potassium Creatinine Troponin I < 0.01 Pcc-J-Ccfxpdxlnvz Pept LDL Cholesterol, Calc Chest x-ray showed findings of previous bypass surgery otherwise normal - Assessment/Plan (1) CAD (coronary artery disease) I25.10 - ATHSCL HEART DISEASE OF [place] CORONARY ARTERY W/O ANG PCTRS Chronic Present on Admission: Yes [place] Comment: Her clinical presentation is consistent with normal troponin unstable angina. I review myocardial perfusion images and she has high risk markers she would benefit from repeat coronary arteriography in further percutaneous revascularization. She will continue current treatment aspirin high intensity statin beta-pablo and ranolazine. (2) Diastolic heart failure I50.30 - UNSPECIFIED DIASTOLIC (CONGESTIVE) HEART FAILURE Chronic Present on Admission: Yes chronic I50.32 - Chronic diastolic (congestive) heart failure Comment: Is stable at this time not taking loop diuretic and she has no evidence of volume overload. (3) Hypertensive heart disease with CHF I11.0 - HYPERTENSIVE HEART DISEASE WITH HEART FAILURE Chronic Comment: Stable continue current treatment including beta-pablo Aldo and calcium channel pablo long-acting (4) Dyslipidemia E78.5 - HYPERLIPIDEMIA, UNSPECIFIED Chronic Comment: Stable continue current treatment including high intensity statin. Case Care Discussed with: Patient
[2016-06-14] MEDS ORDERED: SESTAMIBI 8 MCI V IV ONE (11:49)
[2016-06-14] MEDS: ISOSORBIDE DINITRATE 10 MG TAB PO SCH ×3 (14:04→21:27)
[2016-06-14] MEDS: GUAIFENESIN 600 MG LA TAB PO SCH ×2 (14:06→19:57)
[2016-06-14] MEDS: PROBIOTIC BLEND TAB PO SCH ×2 (14:06→17:45)
[2016-06-14] MEDS: RANOLAZINE 500 MG EXT RELEASE TAB PO SCH ×2 (14:06→19:58)
[2016-06-14] MEDS: LISINOPRIL 5 MG TAB PO SCH (14:07)
[2016-06-14] MEDS: OXYBUTYNIN 5 MG TAB PO SCH ×2 (14:07→19:57)
[2016-06-14] MEDS: PANTOPRAZOLE 40 MG TAB PO SCH ×2 (14:07→17:45)
[2016-06-14] MEDS: LEVOTHYROXINE 88 MCG (0.088 MG) TAB PO SCH (14:07)
[2016-06-14] MEDS: ENOXAPARIN 80 MG/0.8 ML PFS SQ SCH ×2 (14:09→20:00)
[2016-06-14] MEDS: RANITIDINE 150 MG TAB PO SCH (14:36)
--- NOTE | 2016-06-14 14:42 | DIRPT ---
CLINICAL DATA: Chest pain EXAM: NM LEXISCAN CARDIOLITE TECHNIQUE: Cardiolite cardiac stress Test Lexiscan protocol RADIOPHARMACEUTICALS: Eight in 25 millicuries TC 99 M Cardiolite COMPARISON: None. FINDINGS: A Cardiolite cardiac stress Test Lexiscan protocol was performed. The stress portion of the test was supervised by doctor David. I reviewed the images with him. There is mid anterior wall and anteroapical ischemia. Normal contractility. Left ventricle ejection fraction is 67%. IMPRESSION: Mid anterior and anteroapical wall ischemia. Normal contractility. Left ventricle ejection fraction is 67%. Electronically Signed By: Tito Holcomb M.D. On: 06/14/2016 14:39
--- NOTE | 2016-06-14 15:00 | CAPUEKG ---
[place], [place] Test Date: 2016-06-14 Pat Name: JANE MURPHY Department: Room: 447 Gender: Female Respiratory Therapy Assistant: : Requested By: Order Number: Reading MD: King David MD Measurements Intervals [place] Rate: 58 P: 34 [place]: 192 QRS: -6 QRSD: 104 T: 132 QT: 442 QTc: 433 Interpretive Statements Sinus bradycardia ST \T\ T wave abnormality, consider anterolateral ischemia Abnormal ECG Electronically Signed On 06-14-16 14:59:36 EST by King David MD [id number] [id number]
--- NOTE | 2016-06-14 16:06 | PCM.STRESS ---
This is a Lexiscan Cardiolite test. The resting heart rate and blood pressure, 83 beats per minute 126/60. The peak heart rate and blood pressure, 111 beats per minute 140/66. The resting EKG shows sinus rhythm with diffuse ischemic T-wave inversion. The stress EKG is inconclusive for ischemia at 76% of maximum predicted heart rate of 146 beats per minute due to baseline ST and T abnormality. The blood pressure response is normal. The rhythm is sinus, there is no arrhythmia. Symptoms present included nausea and flushing transiently. Patient received a standard dose of Lexiscan. The radiologist will generate the Cardiolite image report.
--- NOTE | 2016-06-14 17:01 | GENMEDPROG ---
Chief Complaint: Chest pain Subjective Note: Resting comfortably this morning, awaiting stress test. She has not had any chest pain since admission to the hospital. Notes Reviewed: Yes Events from last night noted and discussed with Clinical Staff Current Medication List: Reviewed DVT Prophylaxis: Yes - Physical Examination Vital Signs and I&O: Last Vital Signs Temp 98.1 F 06/14/16 16:16 Pulse 72 06/14/16 16:16 Resp 18 06/14/16 16:16 BP 122/63 06/14/16 16:16 Pulse Ox 93 06/14/16 16:16 Oxygen Pulse Oxygen Saturation 93 O2 Device Room Air Oxygen Flow Rate Fraction of Inspired Oxygen ( FIO2) Intake & Output 06/12/16 06/13/16 06/14/16 06/15/16 06:59 06:59 06:59 06:59 Intake Total 0 Output Total 1300 300 Balance -1300 -300 Patient's weight 77.167 kg General: Alert, Oriented x3 HEENT: EOMI (Sclera white) Neck: Normal Trachea alignment, Normal inspection Lymphatics: Normal (no adenopathy) Respiratory: Normal - CTA Cardiovascular: Regular rate, No Gallops,Rubs/Murmurs GI: Normal bowel sounds, Soft, Non tender (non distended) Extremities/Musculoskeletal: Other (Normal Tone). negative: Edema, Cyanosis Skin: No rashes, No significant lesion Neurological: Cranial Nerves (II-XII intact) Psych/Mental Status: Normal Affect (Fully oriented, [place] and appropriate affect ) Lab/DI/Studies Reviewed: Laboratory Tests 06/13/16 06/13/16 06/13/16 16:15 16:15 16:15 WBC 8.2 Hgb 14.8 INR 1.0 Potassium 4.1 BUN 30 H Creatinine 1.00 LDL Cholesterol, Calc 06/14/16 06:40 WBC Hgb INR Potassium BUN Creatinine LDL Cholesterol, Calc 61.0 - Assessment (1) Acute coronary syndrome Acute I24.9 - ACUTE ISCHEMIC HEART DISEASE, UNSPECIFIED Comment/Plan: Known CAD with history of CABG. Plan: Obtain cardiac enzymes x 3, they are negative. She will have stress test this morning. Place patient on telemetry. Give patient oxygen, aspirin. Give nitroglycerin, and morphine as needed for chest pain. Give statin. Stress test has been ordered for the morning. Patient has been advised, if the stress test is negative, to follow up with the primary care provider for evaluation of other potential causes of the chest pain. Give beta pablo. Give MARVIN inhibitor. Lovenox 1 mg/kg q [address] case with Dr. David; cardiology team will consult on patient. (2) Epigastric pain Acute R10.13 - EPIGASTRIC PAIN Comment/Plan: Concerning that it radiates to substernal area and is a tightness sensation. Plan: Continue cardiac workup. If cardiac workup negative then consider outpatient GI workup. (3) Essential (primary) hypertension Acute I10 - ESSENTIAL (PRIMARY) HYPERTENSION Comment/Plan: Continue home meds. (4) CAD (coronary artery disease) Chronic I25.10 - ATHSCL HEART DISEASE OF [place] CORONARY ARTERY W/O ANG PCTRS Qualifiers: Coronary Disease-Associated Artery/Lesion type: enterprise artery [place] vs. transplanted heart: enterprise heart (5) Diastolic heart failure Chronic I50.30 - UNSPECIFIED DIASTOLIC (CONGESTIVE) HEART FAILURE Qualifiers: Heart failure chronicity: chronic Qualified Code(s): I50.32 - Chronic diastolic (congestive) heart failure (6) Dyslipidemia Chronic E78.5 - HYPERLIPIDEMIA, UNSPECIFIED (7) Hypertensive heart disease with CHF Chronic I11.0 - HYPERTENSIVE HEART DISEASE WITH HEART FAILURE Case Care Discussed with: Patient, Family, Nursing Staff Total Time: 38
[2016-06-14] MEDS: ATORVASTATIN 40 MG TAB PO SCH (19:57)
[2016-06-14] MEDS: CLOPIDOGREL 75 MG TAB PO SCH (19:57)
[2016-06-14] MEDS: VITAMINS, MULTIPLE CAP PO SCH (19:58)
[2016-06-14] MEDS: FENOFIBRATE 145 MG TAB PO SCH (19:58)
[2016-06-14] MEDS ORDERED: Aspirin (Orange Enteric Coated) 325 mg tab PO SCH (21:00)
[2016-06-14] MEDS ORDERED: [UNRECOGNIZED DRUG - OTHER] PO SCH (21:00)
[2016-06-14] MEDS ORDERED: CALCIUM CARBONATE PO SCH (21:00)
[2016-06-14] MEDS ORDERED: ASPIRIN PO SCH (21:00)
[2016-06-14] MEDS ORDERED: MAG PO SCH (21:00)
[2016-06-14] MEDS ORDERED: RANITIDINE 150 MG TAB PO SCH (21:00)
[2016-06-14] MEDS: METOPROLOL (TOPROL-XL) 100 MG TAB PO SCH (21:27)
[2016-06-15] MEDS: Albuterol/Ipratropium Neb 3 ML NEB NEB SCH ×2 (00:29→08:08)
[2016-06-15 04:59] VITALS: BMI 31.3
[2016-06-15] MEDS: ISOSORBIDE DINITRATE 10 MG TAB PO SCH (05:49)
[2016-06-15] MEDS: LEVOTHYROXINE 88 MCG (0.088 MG) TAB PO SCH (05:49)
[2016-06-15] MEDS: PANTOPRAZOLE 40 MG TAB PO SCH (05:49)
[2016-06-15] MEDS: GUAIFENESIN 600 MG LA TAB PO SCH (07:35)
[2016-06-15] MEDS: ENOXAPARIN 80 MG/0.8 ML PFS SQ SCH (07:36)
--- NOTE | 2016-06-15 07:43 | PCM.CARD ---
- Subjective Reason for visit: For unstable angina Current Assessment: No New Symptoms. negative: Chest Pain, Dizzines, Edema, Nausea, Palpitations, Shortness of Breath, Vomiting Vital Signs: Last Vital Signs Temp 97.9 F 06/15/16 04:00 Pulse 84 06/15/16 06:00 Resp 18 06/15/16 04:00 BP 125/60 06/15/16 04:00 Pulse Ox 95 06/15/16 04:00 Respiratory: Normal - CTA Jugular Vein Distention: None Pulse Rhythm: Regular EKG Rhythm: Sinus Rhythm EKG Ectopy: negative: Runs >10 beats Heart Sounds: S1 & S2. negative: S3, Murmur Lab/DI Results Reviewed: [employer] Cardiol[facility] test 06/14/2016:Mid anterior and anteroapical wall ischemia. Normal contractility. Left ventricle ejection fraction is 67%. Laboratory Tests 06/13/16 06/13/16 06/13/16 16:15 16:15 16:15 Hgb 14.8 Hct 44.0 Plt Count 268 INR 1.0 Potassium 4.1 Creatinine 1.00 Estimated GFR (MDRD) 54 L Troponin I LDL Cholesterol, Calc 06/14/16 06/14/16 06:40 06:40 Hgb Hct Plt Count INR Potassium Creatinine Estimated GFR (MDRD) Troponin I < 0.01 LDL Cholesterol, Calc 61.0 - Assessment/Plan (1) CAD (coronary artery disease) Chronic I25.10 - ATHSCL HEART DISEASE OF [place] CORONARY ARTERY W/O ANG PCTRS Present on Admission: Yes [place] artery [place] heart A Comment/Plan: History remote bypass surgery, admitted with unstable angina EKGs with diffuse T -wave inversion ischemic and myocardial perfusion study shows the presence of new LAD ischemia. After discussion of options benefits and risk show undergo coronary arteriography today [facility] and revascularization if appropriate. Continue her current treatment including aspirin beta-pablo calcium channel pablo high intensity statin and ranolazine. (2) Diastolic heart failure Chronic I50.30 - UNSPECIFIED DIASTOLIC (CONGESTIVE) HEART FAILURE Present on Admission: Yes chronic I50.32 - Chronic diastolic (congestive) heart failure Comment/Plan: Stable compensated presently not on loop diuretic (3) Hypertensive heart disease with CHF Chronic I11.0 - HYPERTENSIVE HEART DISEASE WITH HEART FAILURE Comment/Plan: Stable continue current treatment including long-acting calcium channel pablo ARB and beta-pablo (4) Dyslipidemia Chronic E78.5 - HYPERLIPIDEMIA, UNSPECIFIED Comment/Plan: Stable continue her statin
[2016-06-15] MEDS: BUDESONIDE 0.5 MG NEB NEB SCH (08:08)
--- NOTE | 2016-06-15 08:34 | PCM.DCS92 ---
- Final/Secondary Discharge Diagnosis (1) Acute coronary syndrome Acute I24.9 - ACUTE ISCHEMIC HEART DISEASE, UNSPECIFIED Present on Admission: Yes Comment: Known CAD with history of CABG. Plan: Obtain cardiac enzymes x 3, they are negative. She will have stress test this morning. Place patient on telemetry. Give patient oxygen, aspirin. Give nitroglycerin, and morphine as needed for chest pain. Give statin. Stress test has been ordered for the morning. Patient has been advised, if the stress test is negative, to follow up with the primary care provider for evaluation of other potential causes of the chest pain. Give beta pablo. Give MARVIN inhibitor. Lovenox 1 mg/kg q [address]iscuss[address] case with Dr. David; cardiology team will consult on patient. (2) Epigastric pain Acute R10.13 - EPIGASTRIC PAIN Present on Admission: Yes Comment: Concerning that it radiates to substernal area and is a tightness sensation. Plan: Continue cardiac workup. If cardiac workup negative then consider outpatient GI workup. (3) Essential (primary) hypertension Acute I10 - ESSENTIAL (PRIMARY) HYPERTENSION Present on Admission: Yes Comment: Continue home meds. (4) CAD (coronary artery disease) Chronic I25.10 - ATHSCL HEART DISEASE OF [place] CORONARY ARTERY W/O ANG PCTRS Present on Admission: Yes (5) Diastolic heart failure Chronic I50.30 - UNSPECIFIED DIASTOLIC (CONGESTIVE) HEART FAILURE Present on Admission: Yes I50.32 - Chronic diastolic (congestive) heart failure (6) Dyslipidemia Chronic E78.5 - HYPERLIPIDEMIA, UNSPECIFIED (7) Hypertensive heart disease with CHF Chronic I11.0 - HYPERTENSIVE HEART DISEASE WITH HEART FAILURE Discharge Disposition: Trans. to Other Hospital ([facility] for diagnostic catheterization) Discharge Condition: Stable Physician Follow up/Referrals: Kingston Cox MD [Primary Care Provider] - Listed Time Home Medications / New Prescriptions: Continue Loratadine [Allergy Relief] 10 mg PO HS PRN PRN Reason: ALLERGIES Clopidogrel Bisulfate [Plavix] 75 mg PO QHS Nitroglycerin [Nitrostat] 0.4 mg SL [id number] PRN PRN Reason: Chest Pain Or Discomfort Metoprolol Succinate (XL) [Toprol Xl] 100 mg PO QHS Levothyroxine Sodium [Levo-T] 88 mcg PO DAILY Fenofibrate Nanocrystallized [Fenofibrate] 145 mg PO QHS Amlodipine [Norvasc] 10 mg PO QHS Mometasone/Formoterol [Dulera 200 Mcg/5 Mcg Inhaler] 2 puff INH BID Polyethylene Glycol 3350 [Miralax] 17 gm PO DAILY PRN PRN Reason: Constipation Pantoprazole Sodium [Protonix] 40 mg PO BID Ipratropium/Albuterol Sulfate [Combivent Respimat Inhal [place]] 4 gm INH QID Albuterol Sulfate [Ventolin Hfa] 1 - 2 puff INH Q4H PRN PRN Reason: SHORTNESS OF BREATH Ranolazine [Ranexa] 500 mg PO BID Isosorbide Dinitrate 30 mg PO TID Guaifenesin [Mucinex] 600 mg PO BID Clonazepam 1 mg PO QHS PRN PRN Reason: Sleep Or Insomnia Atorvastatin Calcium 40 mg PO QHS Aspirin/Calcium Carbonate/Mag [Aspirin Buffered 325 mg Tab] 325 mg PO QHS Triamterene/Hydrochlorothiazid [Triamterene-Hctz 37.5-25 mg Tb] 1 tab PO DAILY Ranitidine [Zantac] 150 mg PO BID Oxybutynin Chloride 5 mg PO BID L.acidoph & Paracasei,B.lactis [Probiotic] 1 cap PO BID Multivitamin [One Daily] 1 tab PO QHS O2 Device: Room Air - DC Summary Notes HPI/Notes: This is a pleasant 75-year-old female with a history of prior coronary artery disease and CABG several years ago, who was admitted to the hospital with 1 week of substernal chest pain worse with exertion and relieved with nitroglycerin. Chest pain also radiated to the neck and left side. She was admitted to the hospital to rule out myocardial infarction, she had a positive stress test with Mid anterior and anteroapical wall ischemia. Normal contractility. Left ventricle ejection fraction is 67%. She was seen in consultation by Dr. King David of Cardiology, who was arrange for transport to [facility] today for diagnostic catheterization. Hospital Course Note:: Discharge summary on patient named JANE MURPHY admitted to [facility] on 06/13/16 by Christian Carpenter MD. Date of discharge is []. - Physical Exam Vital Signs: Last Vital Signs Temp 98.2 F 06/15/16 08:00 Pulse 68 06/15/16 08:00 Resp 18 06/15/16 08:00 BP 120/63 06/15/16 08:00 Pulse Ox 93 06/15/16 08:00 Oxygen Pulse Oxygen Saturation 93 O2 Device Room Air Oxygen Flow Rate Fraction of Inspired Oxygen ( FIO2) Constitutional: No apparent distress, Alert (Awake), Other (She does not appear acutely or chronically ill) Oriented to: Time, Person, Place - HEENT Head: Normal (No bruit thyromegaly or neck vein distention) Eye: Normal (PERRL, EOMI, Sclera white) Oropharynx: Normal (Pharynx:Moist without exudate,Gums-no swelling) Tympanic Membrane: Normal ENT EAC: Normal TMJ: Normal Nose: No Symptoms Reported (septum midline) - Respiratory/Cardiovascular Respiratory: Normal - CTA - GI Auscultation: Normal (Obese soft nondistended active bowel sounds) Palpation: Normal (Soft,No rebound or guarding, non distended) Tenderness: Non tender - Musculoskeletal Back: Normal (Non-Tender) Extremities: Normal (Normal tone, Pulses 2+ No cyanosis or edema, FROM), Femoral Pulse, Pedal Pulse, Radial Pulse. negative: Calf Tenderness, Clubbing, Cyanosis, Edema, Pedal Edema - Integumentary Lymphatics: Normal (no adenopathy) - Neurologic Memory Impaired: Normal Cerebellar: Normal Mood Description: Normal Perception: Normal
[2016-06-15] MEDS: OXYBUTYNIN 5 MG TAB PO SCH (08:49)
[2016-06-15] MEDS: RANOLAZINE 500 MG EXT RELEASE TAB PO SCH (08:49)
[2016-06-15] MEDS: LISINOPRIL 5 MG TAB PO SCH (08:49)
[2016-06-15] MEDS: PROBIOTIC BLEND TAB PO SCH (11:02)
[2016-06-15 11:30] VITALS: BP 143/62; PULSE 75; TEMP 98.4
--- NOTE | 2016-06-15 15:51 | CAPUEKG ---
[place], [place] Test Date: 2016-06-15 Pat Name: JANE MURPHY Department: Room: 447 Gender: Female Cloud Infrastructure Architect: : Requested By: Order Number: Reading MD: King David MD Measurements Intervals [place] Rate: 75 P: 42 DC: 164 QRS: 1 QRSD: 88 T: 114 QT: 376 QTc: 419 Interpretive Statements Normal sinus rhythm ST \T\ T wave abnormality, consider anterolateral ischemia Abnormal ECG Electronically Signed On 06-15-16 15:50:31 EST by King David MD <[email or web address] [id number]
== END 2016-06-15 11:33 | disposition short-term general hospital (02) ==
LOC: ED 15:12 → PCU 18:30
PROVIDERS: ADMIT Internal Medicine; ATTEND Internal Medicine
DX: I24.9 Acute ischemic heart disease, unspecified (principal); I25.10 Atherosclerotic heart disease of native coronary artery without angina pectoris; I11.0 Hypertensive heart disease with heart failure; I50.32 Chronic diastolic (congestive) heart failure; E78.5 Hyperlipidemia, unspecified; E78.00 Pure hypercholesterolemia, unspecified; E03.9 Hypothyroidism, unspecified; Z95.1 Presence of aortocoronary bypass graft; Z86.73 Personal history of transient ischemic attack (TIA), and cerebral infarction without residual deficits; Z79.02 Long term (current) use of antithrombotics/antiplatelets; Z79.899 Other long term (current) drug therapy; Z79.82 Long term (current) use of aspirin
CPT/HCPCS: 36415; 71010; 78452; 80053; 80061; 81001; 82550; 83880; 84484; 85025; 85610; 85730; 93005; 93017; 94640; 96361; 96372; 96374; 96375; 99284; A4216; A9270; A9500; G0378; J1650; J2270; J2405; J2785; J7620; 90656; J3490